=== PATIENT | female | born 2000 | race African-American/Black ===

== ENCOUNTER 2020-07-05 17:20 | Emergency (ER) | payer BC ==
[~2020-07-05] VITALS: Ht 152.4 cm; Wt 39.9 kg
--- NOTE | 2020-07-05 17:20 | NUR ---
PT BIB SELF C/O MEDICAL CALEARANCE FOR SOBER LIVING AND VAGINAL ITCHINESS. PT IS AAOX4, NOT IN RESPIRATORY DISTRESS, V/S STABLE, KEPT RESTED AND COMFORTABLE. WILL CONTINUE TO MONITOR.
--- NOTE | 2020-07-05 18:00 | NUR ---
URINE SPECIMEN COLLECTED AND SENT TO LAB.
--- NOTE | 2020-07-05 18:05 | NUR ---
SEEN AND EXAMINED BY NEERU HERNANDEZ
[2020-07-05] MEDS ORDERED: FLUCONAZOLE (100 MG) 100 MG TABLET ONE (18:21)
[2020-07-05] MEDS ORDERED: FLUCONAZOLE (100 MG) 100 MG TABLET PO ONE (18:30)
--- NOTE | 2020-07-05 19:08 | NUR ---
REPORT GIVEN TO GABBY OLIVAREZ FOR [facility].
--- NOTE | 2020-07-05 19:10 | NUR ---
PT AAOX4, VSS, RESPIRATIONS EVEN AND UNLABORED ON RA W/ NAD NOTED. PT CONNECTED TO THE MONITOR AND POX. AWAITING FOR RESULTS
[2020-07-05 19:20] LABS: CARBON DIOXIDE 25 mmol/L (21-32); CHLORIDE 102 mmol/L (98-107); CREATININE 0.9 mg/dL (0.6-1.3); GLUCOSE 85 mg/dL (74-106); POTASSIUM 3.5 mmol/L (3.5-5.1); SODIUM SERUM 139 mmol/L (136-145); UREA NITROGEN, BLOOD 14 mg/dL (7-18)
[2020-07-05 19:21] LABS: BASOPHILS # (AUTO) 0.1 /CMM (0.0-0.2); BASOPHILS % (AUTO) 1.1 % (0.0-2.0); EOSINOPHILS % (AUTO) 1.8 % (0.0-6.0); HEMATOCRIT 33 % (33-45); HEMOGLOBIN 11.2 g/dL (11.5-14.8); LYMPHOCYTES # (AUTO) 2.1 /CMM (0.8-4.8); MEAN CORPUSCULAR HGB CONC 34 g/dl (31.0-36.0); MEAN CORPUSCULAR VOLUME 92 fL (82-100); MONOCYTES # (AUTO) 0.4 /CMM (0.1-1.30); NEUTROPHILS # (AUTO) 4.8 /CMM (1.8-8.9); NEUTROPHILS % (AUTO) 63.1 % (43.0-81.0); PLATELET COUNT (AUTO) 204 /CMM (150-450); RED BLOOD CELL COUNT(AUTO) 3.59 MIL/uL (4.0-5.2); WHITE BLOOD COUNT (AUTO) 7.5 K/uL (4.3-11.0)
[2020-07-05 19:25] LABS: ALANINE AMINOTRANSFERASE 21 U/L (12-78); ALBUMIN 3.9 g/dL (3.4-5.0); ALCOHOL, BLOOD < 3 mg/dL (0-0); ALKALINE PHOSPHATASE 66 U/L (46-116); ASPARTATE AMINOTRANSFERASE 17 U/L (15-37); BILIRUBIN,DIRECT 0.1 mg/dL (0.0-0.2); BILIRUBIN,TOTAL 0.3 mg/dL (0.2-1.0); TOTAL PROTEIN, SERUM 7.7 g/dL (6.4-8.2)
[2020-07-05 19:26] LABS: ACETAMINOPHEN < 2 ug/ml (10-30)
[2020-07-05 20:01] LABS: APPEARANCE,URINE CLEAR (CLEAR); BILIRUBIN,URINE NEGATIVE (NEGATIVE); BLOOD, URINE NEGATIVE Ery/uL (NEGATIVE); COLOR,URINE YELLOW (YELLOW); LEUKOCYTE ESTERASE ,URINE NEGATIVE (NEGATIVE); NITRITE, URINE NEGATIVE (NEGATIVE); PROTEIN,URINE NEGATIVE (NEGATIVE); UGLUCOSE NEGATIVE (NEGATIVE); UROBILINOGEN,URINE 0.2 EU/dL (0.2)
[2020-07-05 20:09] LABS: BACTERIA,URINE None seen /HPF (None Seen); RBC,URINE 0-2 /HPF (0-2); SQUAMOUS EPITHELIAL CELL,UR 0-2 /HPF (None Seen); WBC,URINE 0-2 /HPF (0-3)
--- NOTE | 2020-07-05 21:31 | NUR ---
Call from lab. Rapid covid negative.
--- NOTE | 2020-07-05 22:43 | NUR ---
Patient discharged to home in stable condition. Written and verbal after care instructions given. Patient verbalizes understanding of instruction.
[2020-07-05 22:44] VITALS: BP 119/86
== END 2020-07-05 22:44 | disposition home or self-care (01) ==
LOC: ER 17:33
DX: Z02.2 Encounter for examination for admission to residential institution (principal); B37.3 Candidiasis of vulva and vagina; F13.10 Sedative, hypnotic or anxiolytic abuse, uncomplicated; F41.9 Anxiety disorder, unspecified; Z20.828 Contact with and (suspected) exposure to other viral communicable diseases
CPT/HCPCS: 36415; 80048; 80076; 80299; 80307; 80320; 81001; 84703; 85025; 87426; 99283; C9803; 81000-TC; G0480

== ENCOUNTER 2020-08-06 17:44 | Emergency (ER) | payer BC ==
[~2020-08-06] VITALS: Ht 152.4 cm; Wt 40.4 kg
[2020-08-06 18:44] VITALS: BP 105/75
--- NOTE | 2020-08-06 19:33 | NUR ---
covid swab sent
--- NOTE | 2020-08-06 20:45 | NUR ---
Patient discharged to home in stable condition. Written and verbal after care instructions given. Patient verbalizes understanding of instruction.
== END 2020-08-06 21:01 | disposition home or self-care (01) ==
LOC: ER 17:44
DX: Z02.2 Encounter for examination for admission to residential institution (principal); Z20.828 Contact with and (suspected) exposure to other viral communicable diseases; F41.9 Anxiety disorder, unspecified; F12.90 Cannabis use, unspecified, uncomplicated
CPT/HCPCS: 80307; 87426; 99283; C9803